=== PATIENT | male | born 1965 | race Caucasian/White ===

== ENCOUNTER 2017-01-03 01:56 | Day surgery (SDCO) | payer MEDICARE, OTHER ==
[~2017-01-03] VITALS: Ht 175 cm; Wt 80.1 kg
[2017-01-03 02:40] LABS: BASOPHIL 0.4 % (0-2); EOSINOPHIL 2.8 % (0-5); HGB 15.9 g/dl (13.2-18.0); LYMPHOCYTE 26.8 % (15-48); MCH 29.6 pg (25.0-31.0); MCHC 33.1 g/dL (32.0-36.0); MCV 89.4 fL (78.0-100.0); MONOCYTE 10.3 % (0-12); MPV 11.5 fL (6.0-9.5); NEUTROPHIL 59.7 % (41-80); PLT 221 K/uL (150-400); RBC 5.37 M/uL (4.70-6.00); RDW 14.9 % (11.5-14.0)
[2017-01-03 02:41] LABS: WBC 14.1 K/uL (4.0-10.5)
[2017-01-03 02:44] LABS: INR 0.93 (0.9-1.2); PROTHROMBIN TIME 12.1 SECONDS (11.7-14.0); PTT 28.7 SECONDS (23.2-31.4)
[2017-01-03 02:48] LABS: CKMB 1.16 ng/mL (0.97-4.94); TROPONIN T < 0.010 ng/mL
[2017-01-03 02:50] LABS: ALBUMIN 4.1 g/dL (3.5-5.0); BILIRUBIN - TOTAL 0.2 mg/dL (0.1-1.0); CREATININE 1.2 mg/dL (0.7-1.2); POTASSIUM 4.4 mmol/L (3.5-5.1); TOTAL PROTEIN 7.1 g/dL (6.4-8.3)
[2017-01-03 03:34] LABS: BILIRUBIN NEGATIVE (NEGATIVE); BLOOD NEGATIVE Ery/uL (NEGATIVE); CLARITY CLEAR (CLEAR); COLOR YELLOW (YELLOW); GLUCOSE (U) NORMAL (NORMAL); KETONE (U) NEGATIVE (NEGATIVE); LEUKOCYTES NEGATIVE Leu/uL (NEGATIVE); NITRITE NEGATIVE (NEGATIVE); PROTEIN NEGATIVE (NEGATIVE); SPECIFIC GRAVITY 1.025 (1.001-1.030); UROBILINOGEN 0.2 mg/dL (0.2-1.0)
[2017-01-03] MEDS ORDERED: NIACIN ER500 MG PO (14:41)
[2017-01-03] MEDS ORDERED: NITROQUIK SL0.4 MG SL (14:41)
== END 2017-01-03 14:00 | disposition home or self-care (01) ==
LOC: FER 01:56 → FTCU 04:00
PROVIDERS: Emergency Medicine; ADMIT Internal Medicine
DX: R07.9 Chest pain, unspecified (principal); I10 Essential (primary) hypertension; F17.210 Nicotine dependence, cigarettes, uncomplicated; Z82.49 Family history of ischemic heart disease and other diseases of the circulatory system
CPT/HCPCS: 36415; 71020; 80053; 80061; 81003; 82550; 82553; 84484; 85025; 85610; 85730; 93005; G0378

== ENCOUNTER 2021-07-25 20:31 | Emergency (ER) | payer MEDICARE, OTHER ==
[~2021-07-25 20:31] MED LIST: KEPPRA100 MG/11 PO; NIACIN ER500 MG PO; NITROQUIK SL0.4 MG SL
[2021-07-25 21:54] LABS: BASOPHIL 0.6 % (0-2); EOSINOPHIL 1.2 % (0-5); HCT 47.4 % (42.0-52.0); HGB 15.7 g/dl (13.2-18.0); MCH 29.7 pg (25.0-31.0); MCHC 33.1 g/dL (32.0-36.0); MCV 89.6 fL (78.0-100.0); NEUTROPHIL 61.7 % (41-80); NRBC 0; PLT 239 K/uL (150-400); RBC 5.29 M/uL (4.70-6.00); RDW 14.3 % (11.5-14.0); WBC 14.1 K/uL (4.0-10.5)
[2021-07-25 22:12] LABS: CREATININE 1.37 mg/dL (0.67-1.17); POTASSIUM 3.7 mmol/L (3.5-5.1)
[2021-07-26] MEDS ORDERED: VENTOLIN HFA18 GM INH (02:19)
[2021-07-26] MEDS ORDERED: PRILOSEC20 MG PO (02:19)
== END 2021-07-26 03:00 | disposition home or self-care (01) ==
LOC: FER 20:31
PROVIDERS: Emergency Medicine
DX: T18.128A Food in esophagus causing other injury, initial encounter (principal); J44.9 Chronic obstructive pulmonary disease, unspecified; Z20.822 Contact with and (suspected) exposure to COVID-19; K21.9 Gastro-esophageal reflux disease without esophagitis; F17.200 Nicotine dependence, unspecified, uncomplicated
CPT/HCPCS: 36415; 36600; 71045; 71275; 80048; 82803; 85025; 94010; J1170; J1610; J2405; J2930; J7030; Q9967; U0002